=== PATIENT | female | born 1960 | race Caucasian/White ===

== ENCOUNTER 2016-09-15 14:51 | Emergency (ER) | payer OTHER ==
[~2016-09-15] VITALS: Ht 152.4 cm; Wt 96.4 kg
[~2016-09-15 14:51] MED LIST: ADVIL,NUPRIN,M200 MG PO; ALBUTEROL SULF8.5 GM IH; AMBIEN10 M1 PO; AMBIEN10 MG PO; AMITRIPTYLINE H25 MG PO; AZITHROMYCIN250 MG1 PO; Aspirin E.C. PO; B COMPLEX1 EAC2 PO; BLOOD PRESSURE MED; CHOLESTEROL PILL; DESYREL100 MG PO; ESTRACE0.5 MG PO; FLEXERIL PO; GUANFACINE HCL1 MG PO; HYDROXYCHLOROQ200 MG PO; LOVASTATIN20 MG PO; MAGNESIUM OXIDE; MEDROL DOSEPAK4 MG PO; MELOXICAM15 MG PO; MIRAPEX0.125 MG PO; MORPHINE CON20 MG/M1; MOTRIN800 MG PO; NEURONTIN300 MG PO; PAXIL40 MG PO; PERCOCET 10/1 TABLET; PERCOCET 5/31 TABLET PO; PREVACID30 MG PO; PRILOSEC OTC20 MG PO; SYNTHROID150 MCG PO; TENEX2 MG PO; THYROID MED PO; VALIUM5 MG PO; VENTOLIN HFA18 GM IH; VITAMIN D5000 INTUN PO; ZANTAC150 MG PO; ZOFRAN ODT4 MG PO; ZOLOFT25 MG PO; [UNRECOGNIZED DRUG - REMARK] PO
[2016-09-15 15:37] LABS: HEMATOCRIT 46.7 % (36.0-46.0); MCH 30.5 PG (29.0-34.0); MCHC 33.2 G/DL (30.0-36.0); MCV 91.9 FL (83-99); MEAN PLAT.VOLUME 9.2 uM^3 (9.5-12.4); PLATELET COUNT 282 K/uL (156-360); RBC DIS.WIDTH-CV 11.6 % (11.8-14.6); RBC DIS.WIDTH-SD 39.1 % (39-53); RED BLOOD COUNT 5.08 M/uL (3.80-5.20); WHITE BLOOD COUNT 8.1 K/uL (4.1-10.2)
[2016-09-15 15:49] LABS: CHLORIDE 100 mEq/L (99-109); POTASSIUM 3.7 mEq/L (3.7-5.4); SODIUM 141 mEq/L (136-147)
[2016-09-15 15:51] LABS: GLUCOSE 132 mg/dL (70-99)
[2016-09-15 15:52] LABS: ANION GAP 13 MEQ/L (2-14)
[2016-09-15 15:55] LABS: GFR ESTIMATE (CALCULATED) > 59 mL/min/
[2016-09-15 15:56] LABS: UREA NITROGEN (BUN) 14 mg/dL (9-23)
[2016-09-15 15:59] LABS: TROP-I INTERPRETATION NEGATIVE; TROPONIN-I < 0.01 ng/mL (0.0-0.30)
[2016-09-15 17:45] LABS: D-DIMER ELISA 0.38 mg/L FEU (< 0.57)
[2016-09-15] MEDS ORDERED: PERCOCET 10/1 TABLET PO (19:05)
[2016-09-15] MEDS ORDERED: GABAPENTIN300 MG PO (19:05)
[2016-09-15] MEDS ORDERED: OMEPRAZOLE40 M1 PO (19:06)
[2016-09-15] MEDS ORDERED: LOW DOSE ASPIRI81 M1 PO (19:07)
[2016-09-15] MEDS ORDERED: BUSPIRONE HCL15 MG PO (19:08)
[2016-09-15] MEDS ORDERED: PHENTERMINE HCL15 MG PO (19:09)
[2016-09-15] MEDS ORDERED: HYDROCHLOROTHIA25 MG PO (19:09)
[2016-09-15] MEDS ORDERED: OPANA ER20 MG PO (19:09)
[2016-09-15] MEDS ORDERED: DULOXETINE HCL40 MG PO (19:10)
[2016-09-15] MEDS ORDERED: RANITIDINE HCL300 MG PO (19:10)
[2016-09-15] MEDS ORDERED: TIZANIDINE HCL4 MG PO (19:10)
[2016-09-15 22:56] VITALS: BP 157/62
== END 2016-09-15 22:57 | disposition home or self-care (01) ==
LOC: EME 14:51 → EDOF 18:54 → EME 18:54 → EDOF 18:54
PROVIDERS: Emergency Medicine
DX: R07.9 Chest pain, unspecified (principal); J45.909 Unspecified asthma, uncomplicated; G89.29 Other chronic pain; M79.7 Fibromyalgia; M81.0 Age-related osteoporosis without current pathological fracture; F17.200 Nicotine dependence, unspecified, uncomplicated
CPT/HCPCS: 71020; 71275; 80048; 84484; 85027; 85379; 93005; 99281; 99285

== ENCOUNTER 2016-09-26 09:10 | Emergency (ER) | payer OTHER ==
[~2016-09-26] VITALS: Ht 152.4 cm; Wt 95.0 kg
[~2016-09-26 09:10] MED LIST changes: +BUSPIRONE HCL15 MG PO; +DULOXETINE HCL40 MG PO; +GABAPENTIN300 MG PO; +HYDROCHLOROTHIA25 MG PO; +LOW DOSE ASPIRI81 M1 PO; +OMEPRAZOLE40 M1 PO; +OPANA ER20 MG PO; +PERCOCET 10/1 TABLET PO; +PHENTERMINE HCL15 MG PO; +RANITIDINE HCL300 MG PO; +TIZANIDINE HCL4 MG PO
[2016-09-26 09:49] LABS: BASOPHIL COUNT 0.1 K/uL (0-0.1); EOSINOPHIL (%) 1.9 % (0-5); EOSINOPHIL COUNT 0.2 K/uL (0-0.3); HEMATOCRIT 43.4 % (36.0-46.0); IMMATURE GRANULOCYTE (%) 0.5 % (0.0-0.7); IMMATURE GRANULOCYTE COUNT 0.1 K/uL; INSTRUMENT ABS NEUTROPHIL CT 7.2 K/uL; LYMPHOCYTE COUNT 1.6 K/uL (1.0-2.8); MCH 30.8 PG (29.0-34.0); MCHC 33.4 G/DL (30.0-36.0); MCV 92.1 FL (83-99); MEAN PLAT.VOLUME 9.2 uM^3 (9.5-12.4); MONOCYTE (%) 9.9 % (3-12); NEUTROPHIL (%) 71.1 % (45-76); NEUTROPHIL COUNT 7.2 K/uL (1.8-6.4); PLATELET COUNT 286 K/uL (156-360); RBC DIS.WIDTH-CV 11.4 % (11.8-14.6); RBC DIS.WIDTH-SD 38.9 % (39-53); RED BLOOD COUNT 4.71 M/uL (3.80-5.20); WHITE BLOOD COUNT 10.1 K/uL (4.1-10.2)
[2016-09-26 10:01] LABS: CHLORIDE 101 mEq/L (99-109); POTASSIUM 3.7 mEq/L (3.7-5.4); SODIUM 141 mEq/L (136-147)
[2016-09-26 10:03] LABS: GLUCOSE 128 mg/dL (70-99)
[2016-09-26 10:05] LABS: ANION GAP 10 MEQ/L (2-14)
[2016-09-26 10:07] LABS: GFR ESTIMATE (CALCULATED) > 59 mL/min/
[2016-09-26 10:08] LABS: UREA NITROGEN (BUN) 13 mg/dL (9-23)
[2016-09-26] MEDS ORDERED: FIORICET,ESG1 TABLET PO (11:48)
[2016-09-26 12:23] VITALS: BP 167/77
== END 2016-09-26 12:24 | disposition home or self-care (01) ==
LOC: EME 09:10
PROVIDERS: Emergency Medicine
DX: R51 Headache (principal)
CPT/HCPCS: 70450; 80048; 85025; 99281; 99285; J1885; J2765; J7030

== ENCOUNTER 2016-10-24 11:26 | Emergency (ER) | payer OTHER ==
[~2016-10-24] VITALS: Ht 152.4 cm; Wt 90.0 kg
[~2016-10-24 11:26] MED LIST changes: +FIORICET,ESG1 TABLET PO
[2016-10-24] MEDS ORDERED: BENADRYL50 MG PO (13:34)
[2016-10-24] MEDS ORDERED: PREDNISONE10 MG PO (13:34)
[2016-10-24 14:21] VITALS: BP 159/81
== END 2016-10-24 14:24 | disposition home or self-care (01) ==
LOC: EME 11:26
DX: T78.49XA Other allergy, initial encounter (principal); R22.0 Localized swelling, mass and lump, head; H92.01 Otalgia, right ear; I10 Essential (primary) hypertension; E03.9 Hypothyroidism, unspecified; G89.29 Other chronic pain; Z79.891 Long term (current) use of opiate analgesic; Z79.82 Long term (current) use of aspirin; F17.200 Nicotine dependence, unspecified, uncomplicated
CPT/HCPCS: 99281; 99284

== ENCOUNTER 2016-11-27 08:05 | Emergency (ER) | payer OTHER ==
[~2016-11-27] VITALS: Ht 152.4 cm; Wt 93.0 kg
[~2016-11-27 08:05] MED LIST changes: +BENADRYL50 MG PO; +PREDNISONE10 MG PO
[2016-11-27 08:59] LABS: HEMATOCRIT 41.4 % (36.0-46.0); MCH 29.4 PG (29.0-34.0); MCHC 32.9 G/DL (30.0-36.0); MCV 89.4 FL (83-99); PLATELET COUNT 283 K/uL (156-360); RBC DIS.WIDTH-CV 12.3 % (11.8-14.6); RED BLOOD COUNT 4.63 M/uL (3.80-5.20); WHITE BLOOD COUNT 9.9 K/uL (4.1-10.2)
[2016-11-27 09:12] LABS: CHLORIDE 104 mEq/L (99-109); POTASSIUM 3.9 mEq/L (3.7-5.4); SODIUM 140 mEq/L (136-147)
[2016-11-27 09:13] LABS: GLUCOSE 109 mg/dL (70-99)
[2016-11-27 09:15] LABS: ANION GAP 9 MEQ/L (2-14)
[2016-11-27 09:17] LABS: GFR ESTIMATE (CALCULATED) > 59 mL/min/
[2016-11-27 09:18] LABS: UREA NITROGEN (BUN) 12 mg/dL (9-23)
[2016-11-27] MEDS ORDERED: ZITHROMAX Z-PA250 MG PO (09:44)
[2016-11-27] MEDS ORDERED: VENTOLIN HFA18 GM IH (09:44)
[2016-11-27 10:08] VITALS: BP 135/80
== END 2016-11-27 10:27 | disposition home or self-care (01) ==
LOC: EME 08:05
DX: J06.9 Acute upper respiratory infection, unspecified (principal); J45.909 Unspecified asthma, uncomplicated; M79.7 Fibromyalgia; Z79.82 Long term (current) use of aspirin; F17.200 Nicotine dependence, unspecified, uncomplicated
CPT/HCPCS: 71020; 80048; 85027; 99281; 99284

== ENCOUNTER 2017-10-23 10:43 | Emergency (ER) | payer OTHER ==
[~2017-10-23] VITALS: Ht 152.4 cm; Wt 87.5 kg
[~2017-10-23 10:43] MED LIST changes: +ZITHROMAX Z-PA250 MG PO
[2017-10-23 11:16] LABS: HEMATOCRIT 44.9 % (36.0-46.0); HEMOGLOBIN 15.5 G/DL (11.9-15.5); MCH 31.5 PG (29.0-34.0); MCHC 34.5 G/DL (30.0-36.0); MCV 91.3 FL (83-99); PLATELET COUNT 259 K/uL (156-360); RBC DIS.WIDTH-SD 40.3 % (39-53); RED BLOOD COUNT 4.92 M/uL (3.80-5.20); WHITE BLOOD COUNT 9.1 K/uL (4.1-10.2)
[2017-10-23 11:32] LABS: CHLORIDE 103 mEq/L (99-109); POTASSIUM 4.8 mEq/L (3.7-5.4); SODIUM 142 mEq/L (136-147)
[2017-10-23 11:35] LABS: GLUCOSE 106 mg/dL (70-99)
[2017-10-23 11:36] LABS: TOTAL BILIRUBIN 0.2 mg/dL (0.0-1.0)
[2017-10-23 11:37] LABS: APPEARANCE CLEAR ((CLEAR)); BILIRUBIN NEGATIVE; BLOOD NEGATIVE; COLOR YELLOW ((YELLOW)); GLUCOSE (STRIP) NEGATIVE; KETONES NEGATIVE; LEUKOCYTES NEGATIVE; NITRITE NEGATIVE; PROTEIN (STRIP) NEGATIVE; SPECIFIC GRAVITY 1.021 (1.000-1.030); UROBILINOGEN 0.2 MG/DL (0.2-1.0)
[2017-10-23 11:38] LABS: ALKALINE PHOSPHATASE 159 IU/L (3-129); CREATININE 0.9 mg/dL (0.6-1.3); GFR ESTIMATE (CALCULATED) > 59 mL/min/
[2017-10-23 11:39] LABS: UREA NITROGEN (BUN) 12 mg/dL (9-23)
[2017-10-23 11:40] LABS: AST (GOT) 48 IU/L (2-34); DIRECT BILIRUBIN 0.1 mg/dL (0.0-0.3)
[2017-10-23 11:41] LABS: ALT (GPT) 38 IU/L (3-49)
[2017-10-23 11:42] LABS: LIPASE 16 U/L (1.0-51.0)
[2017-10-23 12:25] VITALS: BP 163/100
== END 2017-10-23 12:26 | disposition home or self-care (01) ==
LOC: EME 10:43
PROVIDERS: Emergency Medicine
DX: K29.00 Acute gastritis without bleeding (principal); J45.909 Unspecified asthma, uncomplicated; M79.7 Fibromyalgia; Z79.82 Long term (current) use of aspirin; F17.200 Nicotine dependence, unspecified, uncomplicated; M81.0 Age-related osteoporosis without current pathological fracture
CPT/HCPCS: 74176; 80048; 80076; 81003; 83690; 85027; 87086; 99281; 99284